=== PATIENT | male | born 1990 | race African-American/Black ===

== ENCOUNTER 2021-05-07 02:22 | Emergency (ER) | payer OTHER, SELFPAY ==
[2021-05-07 02:25] VITALS: BP 120/89; PULSE 84; RESP 18; TEMP 36.2; O2SAT 100
--- NOTE | 2021-05-07 03:00 | PC.NURSE ---
Pt to ED for complaints of anterior pelvis pain. During initial assessment pt was found to be high risk for suicide. Pt states he has thoughts of suicide, has a plan to jump in front of a bus, and has thought about acting on the plan in the last month. EDP Dr. Roa made aware and suicide precautions initiated.
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
[2021-05-07 03:20] LABS: Basophils Absolute Auto 0.1 K/mm3 (0.0-0.1); Basophils Percent Auto 0.6 % (0.2-1.2); Eosinophils Absolute Auto 0.6 K/mm3 (0-0.3); Eosinophils Percent Auto 7.3 % (0-4.4); Hematocrit 40.2 % (42.0-52.0); Hemoglobin 13.4 g/dL (14.0-18.0); Immature Granulocyte Absolute 0.01 K/mm3 (0.00-0.031); Immature Granulocyte Percent A 0.1 % (0-0.5); Lymphocytes Absolute Auto 2.62 K/mm3 (0.9-3.2); Lymphocytes Percent Auto 33.8 % (18.3-44.2); Mean Corpuscular HGB Conc 33.3 g/dl (32-36); Mean Corpuscular Hemoglobin 32.7 pg (26-34); Mean Platelet Volume 9.2 fl (7.4-10.4); Monocytes Absolute Auto 0.5 K/mm3 (0.1-0.6); Monocytes Percent Auto 6.7 % (2.6-8.5); Neutrophils Percent Auto 51.5 % (45.5-73.1); Platelet Count Result 335 k/mm3 (150-375); Red Cell Distribution Width 13.2 % (11.5-14.5); White Blood Count 7.8 K/mm3 (4.5-10.0)
[2021-05-07 03:28] LABS: Ethanol < 10 mg/dL (<10)
[2021-05-07 03:29] LABS: Acetaminophen < 10 ug/mL (10-30); Salicylate < 1.0 mg/dL (2-20)
[2021-05-07 03:30] LABS: Alanine Aminotransferase 10 U/L (4-50); Albumin Level 3.9 g/dL (3.5-5.1); Alkaline Phosphatase 71 U/L (38-126); Anion Gap 8 mmol/L (8-16); Aspartate Amino Transferase 20 U/L (17-59); Bilirubin,Total 0.3 mg/dL (0.2-1.3); Blood Urea Nitrogen 12 mg/dL (9-20); Calcium 8.8 mg/dL (8.4-10.2); Carbon Dioxide 29 mmol/L (22-30); Chloride 103 mmol/L (98-107); Estimated CRCL calculation 79 ml/min; Estimated Glomerular Filt Rate > 60; Glucose 82 mg/dL (65-110); Potassium 4.1 mmol/L (3.4-5.0); Sodium 140 mmol/L (137-145)
[2021-05-07 03:37] LABS: Barbiturate Screen Urine Negative (Negative); Benzodiazepines Screen Urine Negative (Negative)
[2021-05-07] MEDS: IBUPROFEN 600 MG TABLET PO (03:41)
[2021-05-07] MEDS: CYCLOBENZAPRINE HCL 10 MG TABLET PO (03:41)
[2021-05-07 03:55] LABS: Cannabinoid Screen Urine Positive (Negative); Cocaine Screen Urine Negative (Negative); Methadone Screen Urine Negative (Negative); Opiate Screen Urine Negative (Negative); Phencyclidine Screen Urine Negative (Negative)
[2021-05-07 04:14] LABS: Amphetamine Screen Urine Negative (Negative)
[2021-05-07 05:25] LABS: Add Urine Microscopic? YES; Appearance Urine Cloudy (Clear); Bilirubin Urine Negative (Negative); Blood Urine Negative (Negative); Color Urine Yellow (Yellow); Glucose Urine UA Negative (Negative); Ketones Urine Negative (Negative); Leukocyte Esterase Ur 3+ LEU/UL (Negative); Mucus Urine Rare /lpf; Nitrate Urine Negative (Negative); Protein Urine Negative (Negative); Specific Grav Ur 1.025 (1.001-1.035); Urobilinogen Urine Negative mg/dL (<2.0); WBC Urine >75 /hpf
[2021-05-07 06:04] LABS: EDCOVIDSCREEN Negative (Negative)
--- NOTE | 2021-05-07 07:41 | PC.NURSE ---
This RN spoke with Phylicia from [facility] over night. Phylicia is recommending placement and EDP Dr. Roa states the pt is medically cleared. The pt was found to have a UTI, but per EDP the pt is still medically cleared because the infection was treated with antibiotics. Pt has signed voluntary admission paperwork. [facility] will continue working on getting placement for the pt.
--- NOTE | 2021-05-07 07:55 | PC.NURSE ---
sleeping resp even unlabored opens eye to voice sitters at door
[2021-05-07] MEDS: CEPHALEXIN 500 MG CAPSULE PO (08:09)
--- NOTE | 2021-05-07 08:14 | PC.NURSE ---
argumentative with staff requesting food given crackers and tray ordered
--- NOTE | 2021-05-07 11:18 | PC.NURSE ---
sleeping wakes answers a few question then back to sleep sitter at door
[2021-05-07 12:33] VITALS: BP 134/78; PULSE 76; RESP 18; TEMP 36.6; O2SAT 96
--- NOTE | 2021-05-07 12:40 | PC.NURSE ---
patient accepted at [facility] in [facility] per monique rn, dr Schneider accepting md
--- NOTE | 2021-05-07 19:19 | PC.NURSE ---
[facility]ed [facility] with expected transport time nurse to nurse report given to monique today at [phone]
[2021-05-07 20:33] VITALS: BP 124/71; PULSE 76; RESP 20; TEMP 36.9; O2SAT 99
== END 2021-05-07 22:00 ==
PROVIDERS: Emergency Medicine; Emergency Provider Emergency Medicine
DX: N39.0 Urinary tract infection, site not specified (principal); R45.851 Suicidal ideations; Z20.822 Contact with and (suspected) exposure to COVID-19
CPT/HCPCS: 36415; 80053; 80307; 81001; 84443; 85025; 87086; 87426; 99285; A9270; C9803